=== PATIENT | female | born 1970 | race Caucasian/White ===

== ENCOUNTER 2023-01-01 20:47 | Emergency (ER) | payer OTHER, SELFPAY ==
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
[2023-01-01 21:07] VITALS: BP 133/82; PULSE 81; RESP 18; TEMP 37; O2SAT 98; BMI 35.7
[2023-01-01 21:25] VITALS: BP 140/80; PULSE 87; O2SAT 97
== END 2023-01-01 21:37 | disposition home or self-care (01) ==
PROVIDERS: Emergency Provider Internal Medicine
DX: S09.90XA Unspecified injury of head, initial encounter (principal); R07.89 Other chest pain; R51.9 Headache, unspecified; M54.2 Cervicalgia; X58.XXXA Exposure to other specified factors, initial encounter; Y93.9 Activity, unspecified; Y92.9 Unspecified place or not applicable; Y99.9 Unspecified external cause status
CPT/HCPCS: 93005; 99283